=== PATIENT | male | born 1945 | race Caucasian/White ===

== ENCOUNTER 2021-07-17 15:06 | Outpatient (CLI) | payer MEDICARE | END 2021-07-17 15:07 | disposition home or self-care (01) | LOC: CSHCT 15:06 | PROVIDERS: ATTEND Urology | DX: C67.1 Malignant neoplasm of dome of bladder (principal); R91.1 Solitary pulmonary nodule; K43.9 Ventral hernia without obstruction or gangrene; N20.0 Calculus of kidney; N28.89 Other specified disorders of kidney and ureter | CPT/HCPCS: 74176 ==

== ENCOUNTER 2021-10-26 14:44 | Outpatient (CLI) | payer MEDICARE, OTHER | END 2021-10-26 14:45 | disposition home or self-care (01) | LOC: CSHULT 14:44 | PROVIDERS: ATTEND Urology | DX: N43.3 Hydrocele, unspecified (principal); N50.89 Other specified disorders of the male genital organs; N50.3 Cyst of epididymis | CPT/HCPCS: 76870 ==